=== PATIENT | male | born 1995 ===

== ENCOUNTER 2019-02-20 08:53 | Emergency (ER) | payer OTHER ==
[2019-02-20] MEDS ORDERED: Lidocaine 5% Patch TD STA (09:12)
[2019-02-20] MEDS ORDERED: Lidocaine 5% Patch TD ONE (09:28)
[2019-02-20 10:09] LABS: SQUAMOUS EPITHIAL < 1 /hpf (0-5); URINE BILIRUBIN NEGATIVE (NEGATIVE); URINE BLOOD 1+ (NEGATIVE); URINE CLARITY Clear (Clear); URINE COLOR Yellow (YELLOW); URINE GLUCOSE (UA) NORMAL (Normal); URINE LEUKOCYTE ESTERASE NEG Leu/uL (Negative); URINE PROTEIN NEGATIVE (NEGATIVE); URINE UROBILINOGEN NORMAL mg/dL (0.2-1.0)
--- NOTE | 2019-02-20 10:25 | C.PDOC ---
History Of Present Illness 23 y/o male presents to ED complaining of right-sided lower back pain that started 3 days ago. 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 States the pain started as mild but progressively got worse, and radiates to his right buttock and right posterior leg. He denies any numbness. Also complains that today he started feeling discomfort in testicular area but denies dysuria or hematuria. Time Seen by Provider: 02/20/19 08:58 Chief Complaint (Nursing): Back Pain History Per: Patient History/Exam Limitations: no limitations Onset/Duration Of Symptoms: Days Current Symptoms Are (Timing): Still Present Past Medical History Reviewed: Historical Data, Nursing Documentation, Vital Signs Vital Signs: Last Vital Signs Temp 98.8 F 02/20/19 08:55 Pulse 67 02/20/19 08:55 Resp 20 02/20/19 08:55 BP 141/96 H 02/20/19 08:55 Pulse Ox 99 02/20/19 08:55 Primary Care Provider: Non [facility] Provider, Family History: States: No Known Family Hx - Social History Hx Tobacco Use: No Hx Alcohol Use: No Hx Substance Use: No - Immunization History Hx Tetanus Toxoid Vaccination: No Hx Influenza Vaccination: No Hx Pneumococcal Vaccination: No Review Of Systems Except As Marked, All Systems Reviewed And Found Negative. Constitutional: Negative for: Fever, Chills Gastrointestinal: Negative for: Nausea, Vomiting, Abdominal Pain Genitourinary: Positive for: Other (Testicular discomfort). Negative for: Dysuria, Hematuria Musculoskeletal: Positive for: Back Pain (right-sided lower back) Neurological: Negative for: Weakness, Numbness Physical Exam - Physical Exam Appears: Non-toxic, No Acute Distress Skin: Warm, Dry Head: Normacephalic Eye(s): bilateral: Normal Inspection Oral Mucosa: Moist Neck: Supple Cardiovascular: Rhythm Regular, No Murmur Respiratory: Normal Breath Sounds, No Rales, No Rhonchi, No Wheezing Gastrointestinal/Abdominal: Soft, No Tenderness Back: No CVA Tenderness, Paraspinal Tenderness (right-sided), Straight Leg Raising (pain with straight leg raising at about 30 degrees) Male Genital: Normal Inspection, No Testicular Tenderness, No Testicular Swelling Extremity: Tenderness (right posterior thigh), No Swelling Extremity: Bilateral: Normal Color And Temperature, Normal ROM Neurological/Psych: Oriented x3, Normal Speech, Normal Motor, Normal Sensation ED Course And Treatment - Laboratory Results Lab Results: Urine Color Yellow (YELLOW) 02/20/19 09:39 Urine Clarity Clear (Clear) 02/20/19 09:39 Urine pH 6.0 (5.0-8.0) 02/20/19 09:39 Ur Specific Stanley 1.015 (1.003-1.030) 02/20/19 09:39 Urine Protein Negative mg/dL (NEGATIVE) 02/20/19 09:39 Urine Glucose (UA) Normal mg/dL (Normal) 02/20/19 09:39 Urine Ketones Negative mg/dL (NEGATIVE) 02/20/19 09:39 Urine Blood 1+ (NEGATIVE) H 02/20/19 09:39 Urine Nitrate Negative (NEGATIVE) 02/20/19 09:39 Urine Bilirubin Negative (NEGATIVE) 02/20/19 09:39 Urine Urobilinogen Normal mg/dL (0.2-1.0) 02/20/19 09:39 Ur Leukocyte Esterase Neg Bre/uL (Negative) 02/20/19 09:39 Urine WBC (Auto) < 1 /hpf (0-5) 02/20/19 09:39 Urine RBC (Auto) 2 /hpf (0-3) 02/20/19 09:39 Ur Squamous Epith Cells < 1 /hpf (0-5) 02/20/19 09:39 O2 Sat by Pulse Oximetry: 99 (RA) Pulse Ox Interpretation: Normal - Other Rad Lumbar Spine XR X-Ray: Read By Radiologist Interpretation: FINDINGS: BONES: Normal alignment. No listhesis. No fracture. DISC SPACES: Moderate degenerative changes and multilevel narrowing of the intervertebral disc is spaces more prominent at L4-L5 and L5-S1. OTHER FINDINGS: None. IMPRESSION: No evidence of acute fracture or subluxation. Moderate degenerative changes. - CT Scan/US Testicular US Other Rad Studies (CT/US): Read By Radiologist, Radiology Report Reviewed CT/US Interpretation: FINDINGS: RIGHT TESTICLE: Measures 4 x 1.8 x 2.5 cm. Normal echotexture and flow. RIGHT EPIDIDYMIS: Epididymal head measures 1 x 0.8 x 1.01 cm. Grossly unremarkable appearance with normal flow. LEFT TESTICLE: Measures 3.9 x 1.8 x 2.65 cm. Normal echotexture and flow. LEFT EPIDIDYMIS: Epididymal head measures 0.9 x 0.7 x 1.1 cm. There is 0.4 x 0.3 x 0.3 centimeters cyst at the left epididymis. Grossly unremarkable appearance with normal flow. HYDROCELE: Small hydrocele noted bilaterally . VARICOCELE: None. OTHER FINDINGS: None. IMPRESSION: No evidence of testicular torsion. Small bilateral hydroceles. Small subcentimeter left epididymal cyst. Progress Note: Testicular US ordered. LS Spine XR ordered, which showed normal. Patient given toradol, valium, and lidoderm patch. On re-evaluation patient sts he still has pain. Tramadol po given. On the second evaluation patient feels better, ambulatory, no distress, no neuro deficit. patient is stable to be d/c home with PMD follow up. Disposition - Disposition Disposition: HOME/ ROUTINE Disposition Time: 13:13 Condition: STABLE Additional Instructions: Follow up with PMD within 1-2 days. Return to ED if feel worse. 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 - Scribe Statement The provider has reviewed the documentation as recorded by the Scribe Yelitza Moise All medical record entries made by the Scribe were at my direction and personally dictated by me. I have reviewed the chart and agree that the record accurately reflects my personal performance of the history, physical exam, medical decision making, and the department course for this patient. I have also personally directed, reviewed, and agree with the discharge instructions and disposition.
--- NOTE | 2019-02-20 12:56 | RAD ---
Date of service: 02/20/2019 PROCEDURE: Radiographs of the Lumbar Spine. HISTORY: back pain COMPARISON: No prior. TECHNIQUE: 5 views obtained. FINDINGS: BONES: Normal alignment. No listhesis. No fracture. DISC SPACES: Moderate degenerative changes and multilevel narrowing of the intervertebral disc is spaces more prominent at L4-L5 and L5-S1 OTHER FINDINGS: None. IMPRESSION: No evidence of acute fracture or subluxation. Moderate degenerative changes.
--- NOTE | 2019-02-20 13:02 | US ---
Date of service: 02/20/2019 HISTORY: testicular pain TECHNIQUE: Realtime sonography through the scrotum with color and doppler flow. COMPARISON: None Available. FINDINGS: RIGHT TESTICLE: Measures 4 x 1.8 x 2.5 cm. Normal echotexture and flow. RIGHT EPIDIDYMIS: Epididymal head measures 1 x 0.8 x 1.01 cm. Grossly unremarkable appearance with normal flow. LEFT TESTICLE: Measures 3.9 x 1.8 x 2.65 cm. Normal echotexture and flow. LEFT EPIDIDYMIS: Epididymal head measures 0.9 x 0.7 x 1.1 cm. There is 0.4 x 0.3 x 0.3 centimeters cyst at the left epididymis. Grossly unremarkable appearance with normal flow. HYDROCELE: Small hydrocele noted bilaterally . VARICOCELE: None. OTHER FINDINGS: None. IMPRESSION: No evidence of testicular torsion. Small bilateral hydroceles. Small subcentimeter left epididymal cyst.
[2019-02-20 13:24] VITALS: BP 143/81; PULSE 60; RESP 17; TEMP 98.6
[2019-02-20 18:14] VITALS: O2SAT 99
== END 2019-02-20 13:20 | disposition home or self-care (01) ==
LOC: C.ER 08:53
DX: M54.30 Sciatica, unspecified side (principal)
CPT/HCPCS: 72100; 76870; 81001; 96372; 99285; J1885